=== PATIENT | female | born 1960 | race Caucasian/White ===

== ENCOUNTER 2017-04-16 20:48 | Emergency (ER) | payer MEDICAID ==
[~2017-04-16] VITALS: Ht 170.2 cm; Wt 50.0 kg
[2017-04-16] MEDS ORDERED: ESOM20CA31 PO (21:06)
[2017-04-16] MEDS ORDERED: FAMO20 PO (21:06)
[2017-04-16] MEDS ORDERED: MORPHINE SULFATE 4 MG/ML SYRINGE IVP ONE (21:45)
[2017-04-16] MEDS ORDERED: PROCHLORPERAZINE EDISYLATE 5 MG/ML 2 ML VIAL IVP ONE (21:45)
[2017-04-16] MEDS ORDERED: SODIUM CHLORIDE 0.9% 1,000 ML IV ONE (21:45)
[2017-04-16 21:54] LABS: BASOPHILS % (AUTO) 0.8 % (0.0-2.0); EOSINOPHILS % (AUTO) 3.9 % (1.0-6.0); HEMOGLOBIN 11.6 g/dL (12.0-16.0); LYMPHOCYTES % (AUTO) 44.9 % (22.0-44.0); MEAN CORPUSCULAR HEMOGLOBIN 29.9 pg (26.0-34.0); MEAN CORPUSCULAR HGB CONC 32.2 G/dL (31.0-37.0); MEAN CORPUSCULAR VOLUME 93 fL (80-100); MONOCYTES # (AUTO) 0.5 K/uL (0.1-1.0); MONOCYTES % (AUTO) 7.5 % (2.0-9.0); NEUTROPHILS # (AUTO) 2.9 K/uL (1.8-7.7); NEUTROPHILS % (AUTO) 42.9 % (40.0-70.0); PLATELET COUNT (AUTO) 351 K/uL (150-450); RED BLOOD CELL COUNT(AUTO) 3.87 MIL/uL (4.00-5.20); RED CELL DISTRIBUTION WIDTH 15.2 % (11.5-14.5); WHITE BLOOD COUNT (AUTO) 6.7 K/uL (4.5-11.0)
[2017-04-16 22:12] LABS: ANION GAP 12 mmol/L (8-16); CALCIUM, TOTAL 9.4 mg/dL (8.8-10.5); CARBON DIOXIDE 26 mmol/L (22-29); CHLORIDE 104 mmol/L (98-107); CREATININE 0.86 mg/dL (0.60-1.30); GLOMERULAR FILTR. RATE CALC > 60 mL/min (>60); POTASSIUM 3.2 mmol/L (3.5-5.1); SODIUM SERUM 142 mmol/L (136-145); UREA NITROGEN, BLOOD 14 mg/dL (7-18)
[2017-04-16 22:18] LABS: ALANINE AMINOTRANSFERASE 20 U/L (12-78); ALBUMIN 3.8 g/dL (3.4-5.0); ASPARTATE AMINOTRANSFERASE 17 U/L (15-37); BILIRUBIN,TOTAL 0.3 mg/dL (0.1-1.0); TOTAL PROTEIN, SERUM 7.3 g/dL (6.4-8.2)
[2017-04-16 22:33] LABS: APPEARANCE,URINE CLOUDY (CLEAR); GLUCOSE, URINE (UA) NEGATIVE (NEGATIVE); KETONES,URINE NEGATIVE (NEGATIVE); LEUKOCYTE ESTERASE ,URINE TRACE (NEGATIVE); PROTEIN,URINE NEGATIVE (NEGATIVE)
[2017-04-16 22:35] LABS: OCCULT BLOOD,URINE SMALL (NEGATIVE)
[2017-04-16 22:36] LABS: SQUAMOUS EPITHELIAL CELL,UR Few /LPF (None Seen)
[2017-04-16] MEDS ORDERED: BARIUM SULFATE 0.1% SUSPENSION 450 ML BOTTLE PO ONE (22:45)
[2017-04-17 04:40] VITALS: BP 119/69
== END 2017-04-17 04:40 | disposition home or self-care (01) ==
LOC: EMS 20:49
DX: R10.12 Left upper quadrant pain (principal); R19.7 Diarrhea, unspecified; F19.90 Other psychoactive substance use, unspecified, uncomplicated; F17.210 Nicotine dependence, cigarettes, uncomplicated
CPT/HCPCS: 36415; 74177; 80053; 81001; 83690; 84703; 85025; 87077; 87086; 87186; 96361; 96374; 96375; 99285; J0780; J2270; J7030; Z7610

== ENCOUNTER 2022-03-11 19:21 | Emergency (ER) | payer MEDICAID, OTHER ==
[~2022-03-11] VITALS: Ht 170.2 cm; Wt 68.2 kg
[~2022-03-11 19:21] MED LIST: ESOM20CA31 PO; FAMO20 PO
[2022-03-11] MEDS ORDERED: IBUPROFEN 600 MG TABLET PO ONE (22:15)
[2022-03-11] MEDS ORDERED: CYCLOBENZAPRINE HCL 10 MG TABLET PO ONE (22:15)
[2022-03-11] MEDS ORDERED: IBUP-2070 PO (22:20)
[2022-03-11] MEDS ORDERED: CYCL-448 PO (22:20)
[2022-03-11 22:48] VITALS: BP 133/76
== END 2022-03-11 23:06 | disposition home or self-care (01) ==
LOC: EMS 20:34
DX: M54.10 Radiculopathy, site unspecified (principal); M62.830 Muscle spasm of back; M54.2 Cervicalgia; F41.9 Anxiety disorder, unspecified; J44.9 Chronic obstructive pulmonary disease, unspecified; I10 Essential (primary) hypertension; F19.90 Other psychoactive substance use, unspecified, uncomplicated; Z87.891 Personal history of nicotine dependence
CPT/HCPCS: 99283